=== PATIENT | female | born 1985 | race African-American/Black ===

== ENCOUNTER 2023-10-17 02:42 | Inpatient (IN) | payer OTHER ==
[2023-10-17] MEDS ORDERED: Nitroglycerin 2% Ointment 1 INCH/1 GM Packet ONE (04:48)
[2023-10-17] MEDS ORDERED: Furosemide 40 MG (4 mL) VIAL ONE ×2 (04:48→14:12)
[2023-10-17 08:06] LABS: ALT (SGPT) 18 U/L (8-55); AST (SGOT) 32 U/L (5-34); Albumin 3.1 g/dL (3.5-5.0); Alkaline Phosphatase 178 U/L (40-110); Anion Gap 16 mmol/L (10-20); BUN (Urea Nitrogen) 12 mg/dL (7.0-18.7); Bilirubin, Total 1.7 mg/dL (0.2-1.2); Calc. Creatinine Clearance 0 mL/min (70-130); Calcium 9.9 mg/dL (7.8-10.44); Carbon Dioxide 29 mmol/L (22-29); Chloride 99 mmol/L (98-107); Estimated GFR 82; Globulin 4.3 g/dL (2.4-3.5); Glucose 117 mg/dL (70-105); Potassium 2.9 mmol/L (3.5-5.1); Protein, Total 7.4 g/dL (6.0-8.3); Sodium 141 mmol/L (136-145)
[2023-10-17 08:07] LABS: Troponin I 0.018 ng/mL (< 0.028)
[2023-10-17 09:00] LABS: #Basophils Less than 0.03 10x3/uL (0.0-0.2); %Basophils 0.3 % (0.0-1.0); %Eosinophils 0.6 % (0.0-10.0); %Lymphocytes 24.5 % (21.0-51.0); %Monocytes 8.5 % (0.0-10.0); %Neutrophils 65.8 % (42.0-75.0); Anisocytosis SLIGHT = 6-15 cells HPF (0-5); Hematocrit 42.5 % (36.0-47.0); Hemoglobin 12.8 g/dL (12.0-16.0); Hypochromia SLIGHT = 6-15 cells HPF (0-5); Mean Corpuscular HGB CONC 30.1 g/dL (32.0-36.0); Mean Corpuscular Hemoglobin 21.6 pg (27.0-31.0); Mean Corpuscular Volume 71.8 fL (78.0-98.0); Mean Platelet Volume 10.2 fL (7.4-10.4); Platelet Adequacy Comment Platelets Normal; Platelet Count 396 10x3/uL (130-400); Poikilocytosis SLIGHT = 6-15 cells HPF (0-5); Polychromasia SLIGHT = 2-3 cells HPF (0-2); RBC Distribution Width 18.6 % (11.5-14.5); Red Blood Cell (RBC) Count 5.92 mill/uL (4.20-5.40); Schistocytes SLIGHT = 2-5 cells HPF (0-1)
[2023-10-17] MEDS ORDERED: Acetaminophen 500 MG TAB ONE (09:53)
[2023-10-17] MEDS ORDERED: Potassium Chloride 20 MEQ TAB ONE ×2 (10:42→17:15)
[2023-10-17 10:54] LABS: BHCG - Serum Negative (NEGATIVE); Pregs Control Background? CLEAR/WHITE (CLR/WHITE); Pregs Control Bar Appear? YES (CONTROL BAR)
[2023-10-17 11:15] LABS: Bacteria/HPF None Seen HPF (None Seen); Bilirubin Negative (Negative); Blood, Urine Negative (Negative); CAUTI Indications for Culture Fever or rigors; Clarity Clear (Clear); Glucose, Urine (Dipstick) Normal (Negative); Ketone, Urine Negative (Negative); Leukocyte Negative Leu/uL (Negative); Nitrite Negative (Negative); Protein, Urine (Dipstick) 20 mg/dL (Neg-Trace); RBC/HPF 0-3 HPF (0-3); Specific Gravity, Urine 1.009 (1.002-1.036); Squamous Epithelial 0-3 HPF (0-3); Urobilinogen Normal mg/dL (Less than 2); WBC/HPF None Seen HPF (0-3); pH, Urine 7.5 (5.0-9.0)
[2023-10-17 11:16] LABS: Magnesium 1.3 mg/dL (1.6-2.6)
[2023-10-17 11:20] LABS: Urine Culture Reflex No No
[2023-10-17 11:37] LABS: Troponin I 0.015 ng/mL (< 0.028)
[2023-10-17] MEDS ORDERED: Ondansetron ODT 4 MG TAB PO PRN (11:49)
[2023-10-17] MEDS ORDERED: Electrolyte Replacement Protocol 1 EACH FS SCH (12:00)
[2023-10-17] MEDS ORDERED: Electrolyte Replacement Protocol FS PRN (12:15)
[2023-10-17 12:40] VITALS: BMI 47.7
[2023-10-17] MEDS ORDERED: Ondansetron PF 4 MG/2 ML Vial ONE (14:12)
[2023-10-17] MEDS: Ondansetron PF 4 MG/2 ML Vial IVP PRN (14:16)
[2023-10-17] MEDS ORDERED: Potassium Chloride 20 MEQ (100 mL) BAG ONE (15:38)
[2023-10-17] MEDS: Furosemide 40 MG (4 mL) VIAL SLOW IVP SCH (16:01)
[2023-10-17 16:35] LABS: Troponin I 0.014 ng/mL (< 0.028)
[2023-10-17 16:36] LABS: Potassium 3.1 mmol/L (3.5-5.1)
[2023-10-17] MEDS ORDERED: Magnesium 2 GM/50 ML BAG (IN WATER) ONE (17:15)
[2023-10-17] MEDS: Magnesium 2 GM/50 ML(in water) 2 GM in Premix 1 BAG IVPB SCH (17:19)
[2023-10-17] MEDS: Potassium Chloride 20 MEQ TAB PO SCH (17:20)
[2023-10-17] MEDS: Sacubitril 24MG/Valsartan 26 MG TAB PO SCH (21:18)
[2023-10-17] MEDS: Carvedilol 25 MG TAB PO SCH (21:18)
[2023-10-17] MEDS: Acetaminophen 325 MG TAB PO PRN (21:18)
[2023-10-18] MEDS: Potassium Chloride 20 MEQ in Premix 1 BAG IVPB SCH (01:10)
[2023-10-18] MEDS: Furosemide 40 MG (4 mL) VIAL SLOW IVP SCH ×2 (01:10→06:42)
[2023-10-18] MEDS: Docusate 100 MG CAP PO SCH ×2 (03:00→11:04)
[2023-10-18] MEDS: Polyethylene Glycol 3350 17 GM Packet PO SCH ×2 (03:01→11:05)
[2023-10-18 04:55] LABS: #Basophils Less than 0.03 10x3/uL (0.0-0.2); %Basophils 0.3 % (0.0-1.0); %Eosinophils 0.6 % (0.0-10.0); %Lymphocytes 28.2 % (21.0-51.0); %Monocytes 10.7 % (0.0-10.0); Hematocrit 40.6 % (36.0-47.0); Hemoglobin 12.3 g/dL (12.0-16.0); Mean Corpuscular HGB CONC 30.3 g/dL (32.0-36.0); Mean Corpuscular Hemoglobin 22.3 pg (27.0-31.0); Mean Corpuscular Volume 73.6 fL (78.0-98.0); Mean Platelet Volume 9.5 fL (7.4-10.4); Platelet Count 358 10x3/uL (130-400); RBC Distribution Width 18.1 % (11.5-14.5); Red Blood Cell (RBC) Count 5.52 mill/uL (4.20-5.40)
[2023-10-18 05:45] LABS: Hemoglobin A1c 7.5 % (4.0-6.0)
[2023-10-18 05:59] LABS: Anion Gap 15 mmol/L (10-20); BUN (Urea Nitrogen) 15 mg/dL (7.0-18.7); Calc. Creatinine Clearance 139 mL/min (70-130); Carbon Dioxide 26 mmol/L (22-29); Chloride 99 mmol/L (98-107); Estimated GFR 77; Glucose 187 mg/dL (70-105); Potassium 3.2 mmol/L (3.5-5.1); Sodium 137 mmol/L (136-145)
[2023-10-18 07:17] LABS: Magnesium 1.9 mg/dL (1.6-2.6)
[2023-10-18] MEDS ORDERED: Carvedilol 25 MG TAB PO SCH (08:00)
[2023-10-18] MEDS: Magnesium 2 GM/50 ML(in water) 2 GM in Premix 1 BAG IVPB SCH (11:02)
[2023-10-18] MEDS: Empagliflozin 10 MG TAB PO SCH (11:03)
[2023-10-18] MEDS: Enoxaparin 40 MG (0.4 mL) SYRINGE SC SCH (11:03)
[2023-10-18] MEDS: Potassium Chloride 20 MEQ TAB PO SCH (11:03)
[2023-10-18] MEDS: Carvedilol 25 MG TAB PO SCH (11:03)
[2023-10-18] MEDS: Spironolactone 25 MG TAB PO SCH (11:04)
[2023-10-18] MEDS ORDERED: HumaLOG 300 UNITS/3 ML VIAL SC PRN (13:28)
[2023-10-18] MEDS ORDERED: Dextrose 50% Abboject 50 ML SYRINGE SLOW IVP PRN (13:28)
[2023-10-18] MEDS ORDERED: Dextrose 5% in Water 1,000 ML IV PRN (13:28)
[2023-10-18] MEDS ORDERED: Glucagon 1 MG/ML KIT IM PRN (13:28)
[2023-10-18] MEDS: Furosemide 100 MG (10 mL) VIAL SLOW IVP SCH (17:12)
[2023-10-18] MEDS: metFORMIN 500 MG TAB PO SCH (19:40)
[2023-10-18] MEDS: Atorvastatin Calcium 20 MG TAB PO SCH (21:10)
[2023-10-19 04:56] LABS: #Basophils Less than 0.03 10x3/uL (0.0-0.2); %Basophils 0.3 % (0.0-1.0); %Eosinophils 0.5 % (0.0-10.0); %Lymphocytes 25.4 % (21.0-51.0); %Neutrophils 64.5 % (42.0-75.0); Hematocrit 41.1 % (36.0-47.0); Hemoglobin 12.3 g/dL (12.0-16.0); Mean Corpuscular HGB CONC 29.9 g/dL (32.0-36.0); Mean Corpuscular Volume 73.4 fL (78.0-98.0); Mean Platelet Volume 9.6 fL (7.4-10.4); Platelet Count 361 10x3/uL (130-400); RBC Distribution Width 18.5 % (11.5-14.5)
[2023-10-19 04:59] LABS: Anion Gap 16 mmol/L (10-20); BUN (Urea Nitrogen) 13 mg/dL (7.0-18.7); Calc. Creatinine Clearance 136 mL/min (70-130); Calcium 9.3 mg/dL (7.8-10.44); Carbon Dioxide 29 mmol/L (22-29); Cardiac Risk 4.1 (Less than 4.5); Chloride 98 mmol/L (98-107); Cholesterol 135 mg/dl (< 200 Desired); Estimated GFR 74; Glucose 117 mg/dL (70-105); HDL Cholesterol 33 mg/dL (>60 Neg Risk); LDL Cholesterol, Calculated 91 mg/dL; Potassium 2.9 mmol/L (3.5-5.1); Sodium 140 mmol/L (136-145); Triglycerides 55 mg/dL (Less than 150)
[2023-10-19] MEDS: Potassium Chloride 20 MEQ TAB PO SCH ×2 (05:35→12:31)
[2023-10-19 09:27] LABS: Potassium 3.1 mmol/L (3.5-5.1)
[2023-10-19] MEDS: Sacubitril 49 MG/Valsartan 51 MG TABLET PO SCH (09:47)
[2023-10-20 04:52] LABS: Hematocrit 41.4 % (36.0-47.0); Hemoglobin 12.4 g/dL (12.0-16.0); Mean Corpuscular Hemoglobin 21.8 pg (27.0-31.0); Mean Corpuscular Volume 72.8 fL (78.0-98.0); Mean Platelet Volume 9.5 fL (7.4-10.4); Platelet Count 369 10x3/uL (130-400); RBC Distribution Width 18.9 % (11.5-14.5); Red Blood Cell (RBC) Count 5.69 mill/uL (4.20-5.40)
[2023-10-20 05:39] LABS: Anisocytosis SLIGHT = 6-15 cells HPF (0-5); Hypochromia SLIGHT = 6-15 cells HPF (0-5); Large Platelets 6.1 % (0-5); Lymphocytes 20 % (21-51); Microcytosis SLIGHT = 6-15 cells HPF (0-5); Monocytes 13 % (0-10); Neutrophil 67 % (42-75); Platelet Adequacy Comment Platelets Normal; Polychromasia SLIGHT = 2-3 cells HPF (0-2); Smudge Cells 7.1 %
[2023-10-20 07:14] LABS: Anion Gap 15 mmol/L (10-20); BUN (Urea Nitrogen) 16 mg/dL (7.0-18.7); Calc. Creatinine Clearance 119 mL/min (70-130); Calcium 9.3 mg/dL (7.8-10.44); Carbon Dioxide 27 mmol/L (22-29); Chloride 97 mmol/L (98-107); Estimated GFR 64; Glucose 236 mg/dL (70-105); Magnesium 1.7 mg/dL (1.6-2.6); Potassium 3.4 mmol/L (3.5-5.1); Sodium 136 mmol/L (136-145)
[2023-10-20] MEDS: Magnesium 2 GM/50 ML(in water) 2 GM in Premix 1 BAG IVPB SCH (08:53)
[2023-10-20] MEDS: Potassium Chloride 20 MEQ TAB PO SCH (08:55)
[2023-10-20] MEDS: Carvedilol 25 MG TAB PO SCH (17:12)
[2023-10-21 05:55] LABS: Hematocrit 42.2 % (36.0-47.0); Hemoglobin 12.3 g/dL (12.0-16.0); Mean Corpuscular HGB CONC 29.1 g/dL (32.0-36.0); Mean Corpuscular Hemoglobin 22.1 pg (27.0-31.0); Mean Corpuscular Volume 75.9 fL (78.0-98.0); Mean Platelet Volume 9.3 fL (7.4-10.4); Platelet Count 370 10x3/uL (130-400); RBC Distribution Width 18.9 % (11.5-14.5); Red Blood Cell (RBC) Count 5.56 mill/uL (4.20-5.40)
[2023-10-21 06:05] LABS: Anion Gap 14 mmol/L (10-20); BUN (Urea Nitrogen) 15 mg/dL (7.0-18.7); Calc. Creatinine Clearance 133 mL/min (70-130); Calcium 9.4 mg/dL (7.8-10.44); Carbon Dioxide 29 mmol/L (22-29); Chloride 99 mmol/L (98-107); Estimated GFR 74; Glucose 116 mg/dL (70-105); Potassium 3.6 mmol/L (3.5-5.1); Sodium 138 mmol/L (136-145)
[2023-10-21 06:35] LABS: Magnesium 1.7 mg/dL (1.6-2.6)
[2023-10-21 06:42] LABS: Anisocytosis MODERATE=16-30 cells HPF (0-5); Hypochromia SLIGHT = 6-15 cells HPF (0-5); Lymphocytes 27 % (21-51); Macrocytosis SLIGHT = 6-15 cells HPF (0-5); Microcytosis SLIGHT = 6-15 cells HPF (0-5); Monocytes 6 % (0-10); Neutrophil 68 % (42-75); Nucleated RBC (Manual Ct) 1 % (0); Ovalocytes SLIGHT = 2-5 cells HPF (0-1); Platelet Adequacy Comment Platelets Normal; Polychromasia SLIGHT = 2-3 cells HPF (0-2); Smudge Cells 9.8 %
[2023-10-21] MEDS: Magnesium 2 GM/50 ML(in water) 2 GM in Premix 1 BAG IVPB SCH (08:51)
[2023-10-21] MEDS: diphenhydrAMINE 25 MG CAP PO SCH (08:56)
[2023-10-21] MEDS: Carvedilol 25 MG TAB PO SCH (08:56)
[2023-10-21 17:03] VITALS: BP 90/64; TEMP 97.9
== END 2023-10-21 18:36 | disposition home or self-care (01) | DRG 291 ==
LOC: ERS 02:42 → ERHOLD 10:22 → 2SW 17:31 → OBSVTOIN 10-18 13:25
PROVIDERS: ADMIT Family Medicine; ATTEND Internal Medicine
DX: I11.0 Hypertensive heart disease with heart failure (principal); I50.23 Acute on chronic systolic (congestive) heart failure; O90.3 Peripartum cardiomyopathy; Z68.42 Body mass index [BMI] 45.0-49.9, adult; E78.5 Hyperlipidemia, unspecified; F32.A Depression, unspecified; E87.6 Hypokalemia; E83.42 Hypomagnesemia; E66.01 Morbid (severe) obesity due to excess calories; O94 Sequelae of complication of pregnancy, childbirth, and the puerperium; E11.9 Type 2 diabetes mellitus without complications; Z79.899 Other long term (current) drug therapy
CPT/HCPCS: 36415; 36416; 71045; 80048; 80053; 80061; 81001; 83036; 83735; 83880; 84443; 84484; 84703; 85025; 93005; 93306; 93798; 96374; J1650; J1815; J1940; J2405; J3475; J3480